=== PATIENT | male | born 1995 | race African-American/Black ===

== ENCOUNTER 2017-12-24 05:23 | Day surgery (SDC) | payer MEDICAID ==
[~2017-12-24] VITALS: Ht 177.8 cm; Wt 68.9 kg
[2017-12-24] MEDS ORDERED: LACTATED RINGERS 1,000 ML IV SCH (06:30)
[2017-12-24 06:53] LABS: *AMPHETAMINES SCREEN URINE PRESUMTIVE POSITIVE (NEGATIVE); *BARBITURATES SCREEN URINE NEGATIVE (NEGATIVE); *BENZODIAZEPINES SCREEN URINE NEGATIVE (NEGATIVE); *COCAINE SCREEN URINE NEGATIVE (NEGATIVE); CANNABINOID URINE SCREEN PRESUMTIVE POSITIVE (NEGATIVE); METHADONE URINE SCREEN NEGATIVE (NEGATIVE); OPIATES URINE SCREEN NEGATIVE (NEGATIVE); PHENCYCLIDINE URINE SCREEN NEGATIVE (NEGATIVE)
[2017-12-24] MEDS ORDERED: BUPIVACAINE HCL/PF 0.25% (2.5MG/ML) 10ML ONE (07:30)
[2017-12-24] MEDS ORDERED: BACITRACIN ZINC 15GM TUBE TOP ONE (07:30)
[2017-12-24] MEDS ORDERED: PROPOFOL 200MG/20ML VIAL IV ONE (07:37)
[2017-12-24] MEDS ORDERED: FENTANYL CITRATE/PF 50MCG/ML 2ML VIAL ONE ×2 (07:38→08:10)
[2017-12-24] MEDS ORDERED: MIDAZOLAM HCL 2 MG/2 ML VIAL ONE (07:38)
[2017-12-24] MEDS ORDERED: GLYCOPYRROLATE 0.2 MG/ML 2ML VIAL ONE (07:43)
[2017-12-24] MEDS ORDERED: CEFAZOLIN SODIUM 1000MG/VIAL ONE (07:53)
[2017-12-24] MEDS ORDERED: MEPERIDINE HCL/PF 25MG/ML CPJ IV PRN (09:00)
[2017-12-24] MEDS ORDERED: FENTANYL CITRATE/PF 50MCG/ML 2ML VIAL IV PRN (09:00)
[2017-12-24] MEDS ORDERED: MORPHINE SULFATE 4 MG/ML CPJ (NOT FOR IM USE) IV PRN (09:00)
[2017-12-24] MEDS ORDERED: KETOROLAC 30MG/ML VIAL IV ONE (09:00)
== END 2017-12-24 10:15 | disposition home or self-care (01) ==
LOC: OR 05:23
PROVIDERS: ATTEND Urology
DX: N47.1 Phimosis (principal); F17.210 Nicotine dependence, cigarettes, uncomplicated; Z79.899 Other long term (current) drug therapy
CPT/HCPCS: 54161; 80305; 88304; J0690; J2250; J3010; J3490; J7120; J2704